=== PATIENT | female | born 1955 | race Asian ===

== ENCOUNTER → 2024-08-23 10:26 | Outpatient (REF) | payer OTHER, SELFPAY | LOC: EMG 10:26 | PROVIDERS: ATTENDING PHYSICIAN Podiatrist Foot & Ankle Surgery; FAMILY PHYSICIAN Family Medicine | DX: R20.0 Anesthesia of skin (principal); E11.42 Type 2 diabetes mellitus with diabetic polyneuropathy; G62.9 Polyneuropathy, unspecified | CPT/HCPCS: 95886; 95910 ==